=== PATIENT | female | born 1970 | race Caucasian/White ===

== ENCOUNTER 2021-03-05 08:32 | Day surgery (SDC) | payer BC ==
[2021-02-26 15:29] VITALS: BMI 25.8
[2021-03-05] MEDS ORDERED: ONDANSETRON 4 MG/2 ML VIAL ONE ×2 (08:36→11:50)
[2021-03-05] MEDS ORDERED: LIDOCAINE HCL/PF 2% SDV 5ML VIAL ONE (08:36)
[2021-03-05] MEDS ORDERED: DEXAMETHASONE SOD PHOSPHATE 4 MG/1 ML VIAL ONE (08:36)
[2021-03-05] MEDS ORDERED: ceFAZolin SODIUM 1 GM VIAL ONE ×2 (08:36→09:07)
[2021-03-05] MEDS ORDERED: GENTAMICIN SO4 80 MG/2 ML VIAL ONE (09:07)
[2021-03-05] MEDS ORDERED: LIDOCAINE 1%/EPI 1:100000 (20 ML MULTI DOSE VIAL) ONE (09:08)
[2021-03-05] MEDS ORDERED: MIDAZOLAM HCL 2 MG/2 ML SINGLE DOSE VIAL ONE (09:40)
[2021-03-05] MEDS ORDERED: ONDANSETRON 4 MG/2 ML VIAL IVPUSH PRN (10:02)
[2021-03-05] MEDS ORDERED: oxyCODONE HCL 5 MG TABLET PO PRN (10:02)
[2021-03-05] MEDS ORDERED: LACTATED RINGERS SOLUTION 1,000 ML IV SCH (10:15)
[2021-03-05] MEDS ORDERED: PROPOFOL 20 ML ONE (10:23)
[2021-03-05] MEDS ORDERED: oxyCODONE HCL 5 MG TABLET PO ONE (12:50)
[2021-03-05] MEDS ORDERED: oxyCODONE HCL 5 MG TABLET ONE (12:53)
[2021-03-05 13:09] VITALS: TEMP 97.9
[2021-03-05 13:37] VITALS: BP 121/70; PULSE 90
== END 2021-03-05 13:40 | disposition home or self-care (01) ==
LOC: FASU 08:32
PROVIDERS: ATTEND Plastic Surgery
PROC: 0HWT0JZ Revision of Synthetic Substitute in Right Breast, Open Approach (ICD-10-PCS; 2021-03-05)
PROC: 0HWU0JZ Revision of Synthetic Substitute in Left Breast, Open Approach (ICD-10-PCS; principal; 2021-03-05 10:25)
DX: T85.42XA Displacement of breast prosthesis and implant, initial encounter (principal); M95.4 Acquired deformity of chest and rib; Z15.01 Genetic susceptibility to malignant neoplasm of breast; Z80.3 Family history of malignant neoplasm of breast
CPT/HCPCS: 88300-TC; 88304-TC; 94760